=== PATIENT | male | born 1950 | race Caucasian/White ===

== ENCOUNTER 2018-01-30 14:31 | Observation (INO) | payer MEDICARE, BC ==
[2018-01-30 15:08] LABS: ADD MAN DIFF? NO
[2018-01-30 15:12] LABS: WHITE BLOOD COUNT 12.6 10^3/ul (4.8-10.8)
[2018-01-30 15:12] LABS: BASOPHILS % 0.2 % (0.0-2.0); EOSINOPHILS % 0.1 % (0.0-7.0); HEMATOCRIT 35.2 % (42.0-52.0); HEMOGLOBIN 11.4 g/dl (14.0-18.0); LYMPHOCYTES # 0.8 10^3/ul (0.8-2.9); LYMPHOCYTES % 6.3 % (15.0-51.0); MEAN CORPUSCULAR HEMOGLOBIN 31.2 pg (29.0-33.0); MEAN CORPUSCULAR HGB CONC 32.4 g/dl (32.0-37.0); MEAN CORPUSCULAR VOLUME 96.4 fl (82.0-101.0); MEAN PLATELET VOLUME 9.6 fl (7.4-10.4); MONOCYTES % 7.9 % (0.0-11.0); NEUTROPHIL # 10.7 10^3/ul (1.6-7.5); NEUTROPHILS % 85.1 % (39.0-77.0); PLATELET COUNT 300 10^3/UL (140-415); RED BLOOD COUNT 3.65 10^6/ul (4.70-6.10); RED CELL DISTRIBUTION WIDTH 12.5 % (11.5-14.5)
[2018-01-30 15:33] LABS: INR 0.96; PROTIME 12.9 Sec (11.9-14.9)
[2018-01-30 15:40] LABS: ALANINE AMINOTRANSFERASE 40 IU/L (13-69); ALBUMIN 3.4 g/dl (3.3-4.9); ALBUMIN/GLOBULIN RATIO 1.25; ALKALINE PHOSPHATASE 71 IU/L (42-121); ANION GAP 11 (8-16); ASPARTATE AMINO TRANSFERASE 33 IU/L (15-46); BILIRUBIN,INDIRECT 0.2 mg/dl (0-1.1); BILIRUBIN,TOTAL 0.2 mg/dl (0.2-1.3); BLOOD UREA NITROGEN 18 mg/dl (7-20); CALCIUM 8.9 mg/dl (8.4-10.2); CARBON DIOXIDE 32 mmol/L (21-31); CHLORIDE 99 mmol/L (97-110); CREATININE 0.75 mg/dl (0.61-1.24); GLUCOSE 319 mg/dl (70-220); POTASSIUM 4.9 mmol/L (3.5-5.1); SODIUM 137 mmol/L (135-144); TOTAL PROTEIN 6.1 g/dl (6.1-8.1)
[2018-01-30 15:42] LABS: LIPASE < 10 U/L (23-300)
[2018-01-30 17:28] LABS: ADD UMIC YES; UR ASCORBIC ACID NEGATIVE (NEGATIVE); UR BILIRUBIN (Dip) NEGATIVE (NEGATIVE); UR BLOOD (Dip) 1+ mg/dL (NEGATIVE); UR CLARITY CLEAR (CLEAR); UR COLOR YELLOW (YELLOW); UR GLUCOSE (Dip) 2+ mg/dL (NEGATIVE); UR KETONES (Dip) TRACE mg/dL (NEGATIVE); UR LEUKOCYTE ESTERASE (Dip) NEGATIVE Leu/ul (NEGATIVE); UR NITRITE (Dip) NEGATIVE (NEGATIVE); UR RBC 1 /HPF (0-5); UR SPECIFIC GRAVITY (Dip) 1.018 (1.003-1.030); UR TOTAL PROTEIN (Dip) NEGATIVE (NEGATIVE); UR UROBILINOGEN (Dip) NEGATIVE (NEGATIVE); UR WBC 1 /HPF (0-5)
[2018-01-30] MEDS ORDERED: ACETAMINOPHEN 325 MG TAB PO (18:00)
[2018-01-30] MEDS ORDERED: ONDANSETRON 4 MG INJ IV (18:00)
[2018-01-30] MEDS: oxyCODONE 5 MG TAB PO (19:33)
[2018-01-30] MEDS: CEFTRIAXONE 1 GM/50 ML (PMX) 50 ML IVPB (21:40)
[2018-01-30] MEDS ORDERED: GLUCOSE GEL 15 GRAM TUBE BUCCAL (22:00)
[2018-01-30] MEDS ORDERED: DEXTROSE 50% 50 ML SYRINGE IV ×2 (22:00)
[2018-01-30] MEDS ORDERED: GLUCAGON 1 MG INJ IM (22:00)
[2018-01-30] MEDS ORDERED: GLUCOSE GEL 15 GRAM TUBE PO ×2 (22:00)
[2018-01-30] MEDS: SOD CHLORIDE 0.45% 1,000 ML IV (22:24)
[2018-01-30] MEDS: GABAPENTIN 300 MG CAP PO (22:24)
[2018-01-30 22:59] LABS: ADD UMIC YES; UR ASCORBIC ACID NEGATIVE (NEGATIVE); UR BILIRUBIN (Dip) NEGATIVE (NEGATIVE); UR BLOOD (Dip) 1+ mg/dL (NEGATIVE); UR CLARITY CLEAR (CLEAR); UR COLOR YELLOW (YELLOW); UR GLUCOSE (Dip) 1+ mg/dL (NEGATIVE); UR KETONES (Dip) NEGATIVE (NEGATIVE); UR LEUKOCYTE ESTERASE (Dip) NEGATIVE Leu/ul (NEGATIVE); UR NITRITE (Dip) NEGATIVE (NEGATIVE); UR RBC 1 /HPF (0-5); UR SPECIFIC GRAVITY (Dip) 1.041 (1.003-1.030); UR TOTAL PROTEIN (Dip) NEGATIVE (NEGATIVE); UR UROBILINOGEN (Dip) NEGATIVE (NEGATIVE); UR WBC 0 /HPF (0-5)
[2018-01-30] MEDS: AZITHROMYCIN 500MG/NS (PMX) 250 ML IVPB (23:01)
[2018-01-30] MEDS: ZOLPIDEM 5 MG TAB PO (23:09)
[2018-01-31] MEDS: ACCU-CHEK XX (02:00)
[2018-01-31] MEDS: PANTOPRAZOLE (EC) 40 MG TAB PO (05:35)
[2018-01-31 05:43] LABS: ADD MAN DIFF? NO
[2018-01-31 05:51] LABS: WHITE BLOOD COUNT 10.2 10^3/ul (4.8-10.8)
[2018-01-31 05:51] LABS: BASOPHILS % 0.4 % (0.0-2.0); EOSINOPHILS # 0.2 10^3/ul (0.0-0.5); EOSINOPHILS % 2.4 % (0.0-7.0); HEMOGLOBIN 10.5 g/dl (14.0-18.0); LYMPHOCYTES # 2.1 10^3/ul (0.8-2.9); LYMPHOCYTES % 20.3 % (15.0-51.0); MEAN CORPUSCULAR HEMOGLOBIN 31.2 pg (29.0-33.0); MEAN CORPUSCULAR HGB CONC 32.8 g/dl (32.0-37.0); MEAN PLATELET VOLUME 9.7 fl (7.4-10.4); MONOCYTES % 9.5 % (0.0-11.0); NEUTROPHIL # 6.8 10^3/ul (1.6-7.5); NEUTROPHILS % 67.2 % (39.0-77.0); PLATELET COUNT 301 10^3/UL (140-415); RED BLOOD COUNT 3.37 10^6/ul (4.70-6.10); RED CELL DISTRIBUTION WIDTH 12.3 % (11.5-14.5)
[2018-01-31 06:29] LABS: ALANINE AMINOTRANSFERASE 42 IU/L (13-69); ALBUMIN 3.1 g/dl (3.3-4.9); ALBUMIN/GLOBULIN RATIO 1.03; ALKALINE PHOSPHATASE 67 IU/L (42-121); ANION GAP 12 (8-16); ASPARTATE AMINO TRANSFERASE 35 IU/L (15-46); BILIRUBIN,INDIRECT 0.2 mg/dl (0-1.1); BILIRUBIN,TOTAL 0.2 mg/dl (0.2-1.3); BLOOD UREA NITROGEN 10 mg/dl (7-20); CALCIUM 8.8 mg/dl (8.4-10.2); CARBON DIOXIDE 34 mmol/L (21-31); CHLORIDE 95 mmol/L (97-110); CREATININE 0.58 mg/dl (0.61-1.24); GLUCOSE 127 mg/dl (70-220); POTASSIUM 3.7 mmol/L (3.5-5.1); SODIUM 137 mmol/L (135-144); TOTAL PROTEIN 6.1 g/dl (6.1-8.1)
[2018-01-31] MEDS: INSULIN ASPART [NOVOLOG] 3 ML PEN SC ×4 (07:48→20:35)
[2018-01-31] MEDS: GABAPENTIN 300 MG CAP PO ×2 (08:18→20:33)
[2018-01-31] MEDS: SOD CHLORIDE 0.45% 1,000 ML IV ×2 (11:56→23:38)
[2018-01-31] MEDS: CEFTRIAXONE 1 GM/50 ML (PMX) 50 ML IVPB (13:54)
[2018-01-31] MEDS ORDERED: oxyCODONE (CR) 15 MG TAB [oxyCONTIN] PO ×2 (14:03→14:30)
[2018-01-31] MEDS: oxyCODONE 15 MG TAB PO ×3 (14:20→23:35)
[2018-01-31] MEDS: AZITHROMYCIN 500MG/NS (PMX) 250 ML IVPB (14:37)
[2018-01-31] MEDS: ATORVASTATIN 80 MG TAB PO (20:33)
[2018-02-01] MEDS: ACCU-CHEK XX (01:31)
[2018-02-01] MEDS: SOD CHLORIDE 0.45% 1,000 ML IV (01:35)
[2018-02-01] MEDS: oxyCODONE 15 MG TAB PO ×3 (04:00→12:00)
[2018-02-01] MEDS: PANTOPRAZOLE (EC) 40 MG TAB PO (06:33)
[2018-02-01] MEDS: TIZANIDINE 4 MG TAB PO (08:05)
[2018-02-01] MEDS: INSULIN ASPART [NOVOLOG] 3 ML PEN SC ×2 (08:05→12:10)
[2018-02-01] MEDS: GABAPENTIN 300 MG CAP PO (08:05)
[2018-02-01] MEDS: SOD CHLORIDE 0.9% 100 ML (08:07)
[2018-02-01] MEDS: IOHEXOL 300MG/ML 150 ML BTL (08:08)
[2018-02-01] MEDS: CEFTRIAXONE 1 GM/50 ML (PMX) 50 ML IVPB (12:30)
[2018-02-01] MEDS: ENOXAPARIN 30 MG/0.3 ML SYG SC (14:00)
[2018-02-01] MEDS: AZITHROMYCIN 500MG/NS (PMX) 250 ML IVPB (14:28)
[2018-02-01] MEDS ORDERED: INSULIN GLARGINE [LANTus] (100 UNITS/ML) SYG SC (20:00)
== END 2018-02-01 15:11 | disposition home or self-care (01) ==
LOC: PP2 20:00 → E/R 14:31 → PP2 17:50
DX: R53.83 Other fatigue (principal); R53.1 Weakness; R42 Dizziness and giddiness; E11.40 Type 2 diabetes mellitus with diabetic neuropathy, unspecified; D72.829 Elevated white blood cell count, unspecified; D64.9 Anemia, unspecified; E11.65 Type 2 diabetes mellitus with hyperglycemia; E87.3 Alkalosis; I10 Essential (primary) hypertension; E78.5 Hyperlipidemia, unspecified; Z79.84 Long term (current) use of oral hypoglycemic drugs; G89.4 Chronic pain syndrome; R06.02 Shortness of breath
CPT/HCPCS: 71045; 74177; 80053; 81001; 82962; 83690; 85025; 85610; 87081; 87086; 93005; 93970; 97162; 99285-25; G0378